=== PATIENT | male | born 1990 | race Caucasian/White ===

== ENCOUNTER 2016-03-14 19:06 | Inpatient (IN) | payer OTHER ==
[~2016-03-14] VITALS: Ht 185.4 cm; Wt 96.3 kg
[~2016-03-14 19:06] MED LIST: KEPPRA500 MG PO
[2016-03-14 20:11] LABS: HEMATOCRIT 40.4 % (38.0-50.0); MCH 30.8 PG (29.0-34.0); MCHC 35.4 G/DL (30.0-36.0); MCV 87.1 FL (86-99); MEAN PLAT.VOLUME 11.1 uM^3 (9.0-12.4); PLATELET COUNT 215 K/uL (156-360); RBC DIS.WIDTH-SD 37.6 % (39-53); RED BLOOD COUNT 4.64 M/uL (4.00-5.50); WHITE BLOOD COUNT 7.4 K/uL (4.1-10.2)
[2016-03-14 20:19] LABS: CHLORIDE 109 mEq/L (99-109); POTASSIUM 3.5 mEq/L (3.7-5.4); SODIUM 140 mEq/L (136-147)
[2016-03-14 20:22] LABS: ANION GAP 8 MEQ/L (2-14)
[2016-03-14 20:23] LABS: GLUCOSE 104 mg/dL (70-99)
[2016-03-14 20:24] LABS: SERUM ETHYL ALCOHOL < 10 mg/dL
[2016-03-14 20:25] LABS: ALKALINE PHOSPHATASE 57 IU/L (3-129); GFR ESTIMATE (CALCULATED) > 59 mL/min/
[2016-03-14 20:26] LABS: UREA NITROGEN (BUN) 9 mg/dL (9-23)
[2016-03-14 20:30] LABS: TOTAL BILIRUBIN 0.5 mg/dL (0.0-1.0)
[2016-03-14 20:48] LABS: ADD MIUA? NO; BILIRUBIN NEGATIVE; BLOOD NEGATIVE; COLOR YELLOW ((YELLOW)); GLUCOSE (STRIP) NEGATIVE; KETONES NEGATIVE; LEUKOCYTES NEGATIVE; NITRITE NEGATIVE; PROTEIN (STRIP) NEGATIVE; SPECIFIC GRAVITY 1.011 (1.000-1.030)
[2016-03-14 20:59] LABS: AMPHETAMINE NEGATIVE (500 ng/mL); BARBITURATES NEGATIVE (200 ng/mL); BENZODIAZEPINES NEGATIVE (150 ng/mL); COCAINE NEGATIVE (150 ng/mL); INTERNAL CONTROLS VALID? YES; METHADONE NEGATIVE (200 ng/mL); METHAMPHETAMINE NEGATIVE (500 ng/mL); OPIATES (MORPHINE) NEGATIVE (100 ng/mL); OXYCODONE NEGATIVE (100 ng/mL); PHENCYCLIDINE NEGATIVE (25 ng/mL); PROPOXYPHENE NEGATIVE (300 ng/mL); THC CANNABINOIDS NEGATIVE (50 ng/mL); TRICYCLIC ANTIDEPRESSANTS NEGATIVE (300 ng/mL)
[2016-03-15 01:24] VITALS: BP 125/78
[2016-03-15 07:33] VITALS: BP 118/58
[2016-03-15 15:47] VITALS: BP 110/58
[2016-03-16 15:43] VITALS: BP 136/74
[2016-03-17 07:47] VITALS: BP 135/70
[2016-03-17 15:34] VITALS: BP 135/69
[2016-03-18 07:54] VITALS: BP 124/59
[2016-03-18 15:52] VITALS: BP 118/65
[2016-03-19 07:59] VITALS: BP 116/59
[2016-03-19 16:03] VITALS: BP 133/66
[2016-03-20 07:49] VITALS: BP 136/62
[2016-03-20] MEDS ORDERED: RISPERDAL2 MG PO (09:43)
== END 2016-03-20 11:45 | disposition home or self-care (01) | DRG 885 ==
LOC: EME 19:06 → EDOF 23:51 → 1WEST 23:51
PROVIDERS: Emergency Medicine
DX: F20.81 Schizophreniform disorder (principal); F05 Delirium due to known physiological condition; R45.851 Suicidal ideations; F29 Unspecified psychosis not due to a substance or known physiological condition; R45.850 Homicidal ideations; Z60.2 Problems related to living alone; F33.3 Major depressive disorder, recurrent, severe with psychotic symptoms; F41.9 Anxiety disorder, unspecified; Z81.8 Family history of other mental and behavioral disorders
CPT/HCPCS: 70450; 80048; 80053; 81003; 81015; 82550; 82553; 85027; 90839; 93005; 97150 GO; 97165 GO; 99281; 99285; G0480; J1953; J7030; J7050

== ENCOUNTER 2016-09-01 21:29 | Emergency (ER) | payer OTHER ==
[~2016-09-01] VITALS: Ht 185.4 cm; Wt 98.4 kg
[~2016-09-01 21:29] MED LIST changes: +RISPERDAL2 MG PO
[2016-09-01 22:50] VITALS: BP 142/76
== END 2016-09-01 22:51 | disposition home or self-care (01) ==
LOC: EME 21:29
DX: S63.613A Unspecified sprain of left middle finger, initial encounter (principal); W22.8XXA Striking against or struck by other objects, initial encounter; Y93.64 Activity, baseball
CPT/HCPCS: 73130; 99281; 99284

== ENCOUNTER 2016-12-01 11:21 | Emergency (ER) | payer OTHER ==
[~2016-12-01] VITALS: Ht 185.4 cm; Wt 102.1 kg
[2016-12-01 11:58] LABS: HEMATOCRIT 44.9 % (38.0-50.0); MCH 29.9 PG (29.0-34.0); MCHC 33.4 G/DL (30.0-36.0); MCV 89.6 FL (86-99); PLATELET COUNT 221 K/uL (156-360); RBC DIS.WIDTH-SD 39.1 % (39-53); RED BLOOD COUNT 5.01 M/uL (4.00-5.50); WHITE BLOOD COUNT 7.5 K/uL (4.1-10.2)
[2016-12-01 12:04] LABS: CHLORIDE 108 mEq/L (99-109); POTASSIUM 4.4 mEq/L (3.7-5.4); SODIUM 145 mEq/L (136-147)
[2016-12-01 12:05] LABS: GLUCOSE 72 mg/dL (70-99)
[2016-12-01 12:07] LABS: ANION GAP 9 MEQ/L (2-14)
[2016-12-01 12:09] LABS: GFR ESTIMATE (CALCULATED) > 59 mL/min/
[2016-12-01 12:10] LABS: UREA NITROGEN (BUN) 14 mg/dL (9-23)
[2016-12-01 12:12] LABS: TROP-I INTERPRETATION NEGATIVE; TROPONIN-I < 0.01 ng/mL (0.0-0.30)
[2016-12-01 14:26] LABS: TROP-I INTERPRETATION NEGATIVE; TROPONIN-I < 0.01 ng/mL (0.0-0.30)
[2016-12-01 15:15] VITALS: BP 128/68
== END 2016-12-01 15:16 | disposition home or self-care (01) ==
LOC: EME 11:21
PROVIDERS: Physician Assistant
DX: R07.9 Chest pain, unspecified (principal); F17.200 Nicotine dependence, unspecified, uncomplicated; R56.9 Unspecified convulsions; Z71.6 Tobacco abuse counseling
CPT/HCPCS: 71020; 80048; 84484; 85027; 93005; 99281; 99284